=== PATIENT | male | born 1995 | race African-American/Black ===

== ENCOUNTER 2017-05-20 01:16 | Emergency (ER) | payer SELFPAY | END 2017-05-20 03:00 | disposition left against medical advice (07) | LOC: D.ER 01:16 | DX: N44.00 Torsion of testis, unspecified (principal) ==

== ENCOUNTER 2017-08-28 21:37 | Emergency (ER) | payer SELFPAY ==
[2017-08-28 22:07] LABS: APPEARANCE CLEAR (CLEAR); COLOR YELLOW (YELLOW); GLUCOSE NEGATIVE (NEGATIVE); NITRITE NEGATIVE (NEGATIVE); PROTEIN TRACE mg/dL (NEGATIVE)
[2017-08-28 22:08] LABS: BILIRUBIN NEGATIVE (NEGATIVE); KETONE NEGATIVE (NEGATIVE); UROBILINOGEN NORMAL (NORMAL)
[2017-08-28 22:11] LABS: UDS - AMPHET NEGATIVE QUAL (NEGATIVE); UDS - BARB NEGATIVE QUAL (NEGATIVE); UDS - BENZO NEGATIVE QUAL (NEGATIVE); UDS - COCAINE NEGATIVE QUAL (NEGATIVE); UDS - OPIATE NEGATIVE QUAL (NEGATIVE); UDS - PCP NEGATIVE QUAL (NEGATIVE); UDS - THC POSITIVE QUAL (NEGATIVE)
[2017-08-28 22:16] LABS: BACTERIA FEW /hpf (NONE SEEN); RED CELLS - URINE OCC /hpf (0-5)
[2017-08-28 22:29] LABS: BASOPHILS 0.1 % (0-2); EOSINOPHILS 0.6 % (0-7); HEMATOCRIT 42.7 % (42.0-54.0); HEMOGLOBIN 14.3 g/dL (13.5-17.5); IMMATURE GRANULOCYTES 0.4 % (0-5); LYMPHOCYTES 15.5 % (15-50); MCH 29.3 pg (26.0-34.0); MCHC 33.5 g/dL (31.0-37.0); MCV 87.5 fL (80.0-100.0); MEAN PLATELET VOLUME 11.5 fL (7.4-10.4); MONOCYTES 9.2 % (2-11); NEUTROPHILS 74.2 % (40-80); PLATELET COUNT 184 10x3/uL (130-400); RBC 4.88 10x6/uL (4.20-6.10); RDW 12.4 % (11.5-14.5); WBC 9.6 10x3/uL (4.8-10.8)
[2017-08-28 22:43] LABS: ALBUMIN 3.4 g/dL (3.4-5.0); ANION GAP 11.3 mmol/L (8-16); BILIRUBIN - TOTAL 0.2 mg/dL (0.2-1.3); CALCIUM 9.1 mg/dL (8.5-10.1); CARBON DIOXIDE 28.3 mmol/L (21.0-32.0); CREATININE - SERUM 1.5 mg/dL (0.6-1.3); POTASSIUM - SERUM 3.6 mmol/L (3.5-5.1); PROTEIN - SERUM 6.6 g/dL (6.4-8.2)
== END 2017-08-29 00:57 | disposition home or self-care (01) ==
LOC: D.ER 21:37
PROVIDERS: Emergency Medicine
DX: R56.9 Unspecified convulsions (principal); F17.200 Nicotine dependence, unspecified, uncomplicated

== ENCOUNTER 2017-09-03 15:17 | Emergency (ER) | payer SELFPAY ==
[2017-09-03 15:43] LABS: BASOPHILS 0.2 % (0-2); EOSINOPHILS 0.6 % (0-7); HEMATOCRIT 43.6 % (42.0-54.0); IMMATURE GRANULOCYTES 0.2 % (0-5); LYMPHOCYTES 23.7 % (15-50); MCH 29.9 pg (26.0-34.0); MCHC 34.4 g/dL (31.0-37.0); MCV 86.9 fL (80.0-100.0); MEAN PLATELET VOLUME 11.5 fL (7.4-10.4); MONOCYTES 9.5 % (2-11); NEUTROPHILS 65.8 % (40-80); PLATELET COUNT 176 10x3/uL (130-400); RBC 5.02 10x6/uL (4.20-6.10); RDW 12.3 % (11.5-14.5); WBC 6.3 10x3/uL (4.8-10.8)
[2017-09-03 15:55] LABS: ALBUMIN 3.7 g/dL (3.4-5.0); ALKALINE PHOSPHATASE 63 U/L (46-116); ALT (SGPT) 24 U/L (10-68); BILIRUBIN - TOTAL 0.87 mg/dL (0.2-1.3); CALC OSMOLALITY 283 mosm/kg (275-300); CARBON DIOXIDE 32.3 mmol/L (21.0-32.0); CHLORIDE - SERUM 103 mmol/L (98-107); CREATININE - SERUM 1.2 mg/dL (0.6-1.3); GLUCOSE 94 mg/dL (74-106); POTASSIUM - SERUM 3.7 mmol/L (3.5-5.1); PROTEIN - SERUM 7.1 g/dL (6.4-8.2); SODIUM 141 mmol/L (136-145); UREA NITROGEN 20 mg/dL (7-18); eGFR NON AFRICAN AMERICAN 81 mL/min (90-120)
== END 2017-09-03 17:39 | disposition home or self-care (01) ==
LOC: D.ER 15:17
PROVIDERS: Emergency Medicine
DX: R56.9 Unspecified convulsions (principal)

== ENCOUNTER 2017-11-22 09:36 | Emergency (ER) | payer MEDICAID ==
[2017-11-22] MEDS ORDERED: OMNICEF300 MG PO (21:11)
[2017-11-22] MEDS ORDERED: TORADOL10 MG PO (21:12)
== END 2017-11-22 09:58 | disposition home or self-care (01) ==
LOC: D.ER 09:36
DX: J03.90 Acute tonsillitis, unspecified (principal); R50.9 Fever, unspecified

== ENCOUNTER 2017-11-22 19:18 | Emergency (ER) | payer MEDICAID ==
[~2017-11-22] VITALS: Ht 170.2 cm; Wt 65.9 kg
[2017-11-22 19:24] VITALS: Ht 170.2 cm; Wt 65.9 kg
[2017-11-22] MEDS ORDERED: OMNICEF300 MG PO (21:11)
[2017-11-22] MEDS ORDERED: TORADOL10 MG PO (21:12)
[2017-11-22 21:57] VITALS: BP 122/74
[2017-11-24 16:14] LABS: EBV - EARLY ANTIGEN AB IGG <9.0 U/mL (0.0-8.9); EBV - NUCLEAR ANTIGEN AB IGG >600.0 U/mL (0.0-17.9); EBV VIRAL CAPSID AB IGM <36.0 U/mL (0.0-35.9)
== END 2017-11-22 21:58 | disposition home or self-care (01) ==
LOC: D.ER 19:18
PROVIDERS: Family Medicine
DX: J03.90 Acute tonsillitis, unspecified (principal); R50.9 Fever, unspecified

== ENCOUNTER 2018-03-01 09:19 | Emergency (ER) | payer SELFPAY ==
[~2018-03-01] VITALS: Ht 170.2 cm; Wt 63.6 kg
[~2018-03-01 09:19] MED LIST: OMNICEF300 MG PO; TORADOL10 MG PO
[2018-03-01 09:23] VITALS: Ht 170.2 cm; Wt 63.6 kg
[2018-03-01 10:27] LABS: BASOPHILS 0.2 % (0-2); EOSINOPHILS 2.1 % (0-7); HEMATOCRIT 38.8 % (42.0-54.0); HEMOGLOBIN 13.3 g/dL (13.5-17.5); IMMATURE GRANULOCYTES 0.2 % (0-5); LYMPHOCYTES 24.3 % (15-50); MCH 30.2 pg (26.0-34.0); MCHC 34.3 g/dL (31.0-37.0); MCV 88.2 fL (80.0-100.0); MEAN PLATELET VOLUME 10.1 fL (7.4-10.4); MONOCYTES 6.7 % (2-11); NEUTROPHILS 66.5 % (40-80); PLATELET COUNT 185 10x3/uL (130-400); RDW 12.9 % (11.5-14.5); WBC 5.3 10x3/uL (4.8-10.8)
[2018-03-01 10:33] LABS: ALBUMIN 4.3 g/dL (3.4-5.0); ALKALINE PHOSPHATASE 99 U/L (46-116); ALT (SGPT) 13 U/L (10-68); BILIRUBIN - TOTAL 0.29 mg/dL (0.2-1.3); CALC OSMOLALITY 281 mosm/kg (275-300); CALCIUM 9.9 mg/dL (8.5-10.1); CARBON DIOXIDE 30.8 mmol/L (21.0-32.0); CHLORIDE - SERUM 103 mmol/L (98-107); CREATININE - SERUM 0.8 mg/dL (0.6-1.3); GLUCOSE 107 mg/dL (74-106); POTASSIUM - SERUM 4.2 mmol/L (3.5-5.1); PROTEIN - SERUM 7.9 g/dL (6.4-8.2); SODIUM 141 mmol/L (136-145); UREA NITROGEN 15 mg/dL (7-18); eGFR NON AFRICAN AMERICAN > 90 mL/min (90-120)
[2018-03-01 10:44] LABS: THYROID STIMULATING HORMONE 0.69 uIU/mL (0.36-3.74)
[2018-03-01] MEDS ORDERED: VOLTAREN75 MG PO (11:02)
[2018-03-01 11:15] VITALS: BP 138/078
[2018-03-01 12:44] LABS: UDS - AMPHET NEGATIVE QUAL (NEGATIVE); UDS - BARB NEGATIVE QUAL (NEGATIVE); UDS - BENZO POSITIVE QUAL (NEGATIVE); UDS - COCAINE NEGATIVE QUAL (NEGATIVE); UDS - OPIATE NEGATIVE QUAL (NEGATIVE); UDS - PCP NEGATIVE QUAL (NEGATIVE); UDS - THC NEGATIVE QUAL (NEGATIVE)
[2018-03-01 12:45] LABS: APPEARANCE CLEAR (CLEAR); BILIRUBIN NEGATIVE (NEGATIVE); COLOR STRAW (YELLOW); GLUCOSE NEGATIVE (NEGATIVE); KETONE NEGATIVE (NEGATIVE); NITRITE NEGATIVE (NEGATIVE); PROTEIN NEGATIVE (NEGATIVE); SPECIFIC GRAVITY 1.005 (1.005-1.020); UROBILINOGEN NORMAL (NORMAL)
== END 2018-03-01 11:16 ==
LOC: D.ER 09:19
PROVIDERS: Family Medicine
DX: F32.9 Major depressive disorder, single episode, unspecified (principal); M25.532 Pain in left wrist; M25.531 Pain in right wrist